=== PATIENT | female | born 1980 | race Caucasian/White ===

== ENCOUNTER 2022-09-11 17:29 | Emergency (ER) | payer MEDICAID, SELFPAY ==
[2022-09-11 17:30] VITALS: BP 156/82; PULSE 107; RESP 16; TEMP 36.2; O2SAT 100; BMI 38.0
--- NOTE | 2022-09-11 18:08 | EDS_ITS ---
HPI History of Present Illness Chief Complaint: Numb/Ting Informant: patient Narrative Narrative: Patient presents with numbness and tingling to her left index finger after suffering a laceration a week ago. Patient states that she cut her left index finger with a knife a week ago while cutting an avocado. She was seen in an outside emergency room and placed in a splint. Patient states she has not taken the splint off and the finger feels very stiff and she is having difficulty with flexion and extension. She also feels the numbness and tingling over two thirds of her finger. PFSH PFSH Medical History no medical history no medical history Allergy/AdvReac Type Severity Reaction Status Date / Time No Known Allergies Allergy Verified 09/11/22 17:29 ROS ROS ED Constitutional Constitutional ED: Denies chills or fever(s) Eyes Eyes: Denies change in vision ENT ENT ED: Denies rhinorrhea Cardiovascular Cardiovascular: Denies chest pain Respiratory/Chest Respiratory/Chest: Denies cough Neurologic Neurologic: Reports paresthesias and weakness EXAM Physical Exam Const Vital Signs: 09/11/22 17:30 Temperature 97.2 F L Temperature Source Temporal Pulse Rate 107 H Respiratory Rate 16 Blood Pressure 156/82 H Blood Pressure Mean 106 Pulse Ox 100 Oxygen Delivery Method Room Air Positive well nourished and well developed General Appearance ED: well developed HEENT Reports moist mucous membranes Eyes EOMs intact bilaterally Chest Wall inspection of chest normal Resp normal respiratory effort Cardio regular rate and regular rhythm Extremity Extremity Narrative: Healing laceration along the radial side of the left index finger at the DIP joint. No indication of infection. Cap refill is present distally. Patient reports tingling over the distal two thirds of her index finger along the radial side. There is no focal tenderness over the flexor or extensor tendon. I am able to passively flex and extend her finger. Neuro oriented x3 MDM MDM MDM Narrative Medical decision making narrative: I explained to the patient that there should be no flexor or extensor injury given where her laceration was located. I believe that her finger is likely stiff from being placed in an extension splint for the past week. I encouraged her to slowly work on range of motion and that should come back. I advised her that if she has a nerve injury causing numbness and tingling that should be present from the laceration and distal. She may have numbness and tingling down the length of her finger secondary to the splint being applied too tightly and having a pressure injury to the nerve, however I would expect this to improve now that the splint has been removed. However, and concerned that she may have a nerve injury over the distal aspect of her index finger. I have recommended follow-up with a hand surgeon for further testing and therapy. She will be referred to [facility] hand. Discharge Plan Triage Chief Complaint: Numb/Ting ED Provider: Elina Sommers Dx/Rx/DC Orders Clinical Impression: Paresthesias Instructions: ED Paraesthesias Primary Care Provider: NOT,DEFINED Referrals: Nel Bernal MD [Non-Staff] - As soon as possible NOT,DEFINED [Primary Care Provider] - Disposition Disposition: Home, Self Care
== END 2022-09-11 18:36 | disposition home or self-care (01) ==
LOC: ED 18:23
PROVIDERS: Emergency Provider Emergency Medicine; Visit Provider Emergency Medicine
DX: R20.2 Paresthesia of skin (principal); R20.0 Anesthesia of skin
CPT/HCPCS: 99283